=== PATIENT | female | born 1970 | race Caucasian/White ===

== ENCOUNTER → 2020-09-02 | Day surgery (SDC) | payer OTHER ==
[~2020-09-02] MED LIST: BENTYL10 MG PO; COLACE100 MG PO; FLOMAX0.4 MG PO; NORCO 5-325 TA1 EACH PO; OMEPRAZOLE 20MG20 MG PO; ONDANSETRON ODT4 MG PO; ONDANSETRON ODT4 MG SL; PROTONIX 40MG T40 MG PO; SERTRALINE HCL50 MG PO
[2020-09-02 07:56] LABS: HCG (URINE) SCREEN NEGATIVE (NEGATIVE)
[2020-09-02 08:08] LABS: HCT 44.3 % (37.0-47.0); HGB 14.8 g/dl (12.5-16.0); MCH 29.7 pg (25.0-31.0); MCHC 33.4 g/dL (32.0-36.0); MCV 88.8 fL (78.0-100.0); MPV 10.1 fL (6.0-9.5); RBC 4.99 M/uL (4.20-5.40); RDW 12.5 % (11.5-14.0); WBC 11.7 K/uL (4.0-10.5)
[2020-09-02 08:20] LABS: ALBUMIN 4.2 g/dL (3.4-5.0); BILIRUBIN - TOTAL 0.6 mg/dL (0.2-1.0); BUN/CREAT RATIO (CALC) 15.5 RATIO; CREATININE 0.71 mg/dL (0.51-0.95); GLOBULIN (CALCULATION) 4.1 g/dL; POTASSIUM 3.4 mmol/L (3.5-5.1); TOTAL PROTEIN 8.3 g/dL (6.4-8.2)
== END | disposition home or self-care (01) ==
LOC: FAS 07:23
PROVIDERS: Surgery
DX: D12.0 Benign neoplasm of cecum (principal); K29.50 Unspecified chronic gastritis without bleeding; K21.9 Gastro-esophageal reflux disease without esophagitis; G43.909 Migraine, unspecified, not intractable, without status migrainosus; F41.9 Anxiety disorder, unspecified; F32.9 Major depressive disorder, single episode, unspecified; E11.9 Type 2 diabetes mellitus without complications; F17.210 Nicotine dependence, cigarettes, uncomplicated; Z88.0 Allergy status to penicillin; Z88.5 Allergy status to narcotic agent; Z88.8 Allergy status to other drugs, medicaments and biological substances; Z79.899 Other long term (current) drug therapy
CPT/HCPCS: 36415; 80053; 84703; J2250; J2704; J7120; U0002

== ENCOUNTER 2020-11-24 13:29 | Day surgery (SDCO) | payer OTHER ==
[~2020-11-24 13:29] MED LIST changes: -BENTYL10 MG PO; -COLACE100 MG PO; -FLOMAX0.4 MG PO; -NORCO 5-325 TA1 EACH PO; -ONDANSETRON ODT4 MG SL; -PROTONIX 40MG T40 MG PO
[2020-11-24 13:57] LABS: BASOPHIL 0.5 % (0-2); EOSINOPHIL 1.2 % (0-5); HCT 44.1 % (37.0-47.0); HGB 15.1 g/dl (12.5-16.0); LYMPHOCYTE 29.3 % (15-48); MCH 29.7 pg (25.0-31.0); MCHC 34.2 g/dL (32.0-36.0); MCV 86.6 fL (78.0-100.0); MONOCYTE 7.6 % (0-12); MPV 10.1 fL (6.0-9.5); NRBC 0; PLT 246 K/uL (150-400); RBC 5.09 M/uL (4.20-5.40); RDW 12.8 % (11.5-14.0); WBC 11.1 K/uL (4.0-10.5)
[2020-11-24 14:13] LABS: BILIRUBIN - TOTAL 0.4 mg/dL (0.2-1.0); BUN/CREAT RATIO (CALC) 10.1 RATIO; CREATININE 0.69 mg/dL (0.51-0.95); GLOBULIN (CALCULATION) 3.9 g/dL; POTASSIUM 4.5 mmol/L (3.5-5.1); TOTAL PROTEIN 7.9 g/dL (6.4-8.2)
[2020-11-24 14:18] LABS: INR 1.04 (0.9-1.2); PROTHROMBIN TIME 12.9 SECONDS (11.4-13.6); PTT 28.1 SECONDS (22.2-34.7)
[2020-11-24 18:46] LABS: CORONAVIRUS 2019 SARS-COV-2 NEGATIVE (NEGATIVE); INFLUENZA A NAA NEGATIVE (NEGATIVE)
[2020-11-25 06:16] LABS: CHOLESTEROL 175 mg/dL (<200); HDL 28 mg/dL (40-60); LDL - DIRECT 138 mg/dL (<100); TRIGLYCERIDES 79 mg/dL (<150)
[2020-11-25] MEDS ORDERED: PROTONIX 40MG T40 MG PO (13:31)
[2020-11-25] MEDS ORDERED: NORCO 5-325 TA1 EACH PO (13:31)
--- NOTE | 2020-11-25 14:44 | NUR ---
PT. TO D/C HOME. NO NEEDS
[2020-11-25] MEDS ORDERED: ONDANSETRON ODT4 MG PO (15:04)
== END 2020-11-25 15:28 | disposition home or self-care (01) ==
LOC: FER 13:29 → FMS 17:33
PROVIDERS: Emergency Medicine; ADMIT Allergy & Immunology Allergy
DX: R07.89 Other chest pain (principal); G89.29 Other chronic pain; R10.13 Epigastric pain; R13.10 Dysphagia, unspecified; K76.0 Fatty (change of) liver, not elsewhere classified; R73.03 Prediabetes; F17.210 Nicotine dependence, cigarettes, uncomplicated; K21.9 Gastro-esophageal reflux disease without esophagitis; G43.409 Hemiplegic migraine, not intractable, without status migrainosus; E66.9 Obesity, unspecified; Z82.49 Family history of ischemic heart disease and other diseases of the circulatory system; Z79.899 Other long term (current) drug therapy; Z88.0 Allergy status to penicillin; Z88.5 Allergy status to narcotic agent; Z88.8 Allergy status to other drugs, medicaments and biological substances; Z20.822 Contact with and (suspected) exposure to COVID-19
CPT/HCPCS: 36415; 71045; 71250; 80053; 80061; 83036; 84484; 85025; 85379; 85610; 85730; 93005; C9113; G0378; J2405; J3010; U0002

== ENCOUNTER 2020-12-19 17:40 | Emergency (ER) | payer OTHER ==
[~2020-12-19 17:40] MED LIST changes: +NORCO 5-325 TA1 EACH PO; +PROTONIX 40MG T40 MG PO
== END 2020-12-19 19:10 | disposition left against medical advice (07) ==
LOC: FER 17:40
DX: Z53.8 Procedure and treatment not carried out for other reasons (principal)
CPT/HCPCS: 93005

== ENCOUNTER 2021-02-21 22:59 | Emergency (ER) | payer OTHER ==
[2021-02-22 01:02] LABS: BILIRUBIN NEGATIVE (NEGATIVE); BLOOD TRACE-INTACT Ery/uL (NEGATIVE); CLARITY CLEAR (CLEAR); COLOR YELLOW (YELLOW); GLUCOSE (U) NORMAL (NORMAL); LEUKOCYTES NEGATIVE Leu/uL (NEGATIVE); NITRITE NEGATIVE (NEGATIVE); PROTEIN NEGATIVE (NEGATIVE); SPECIFIC GRAVITY >=1.030 (1.001-1.030); UROBILINOGEN 0.2 mg/dL (0.2-1.0); pH 5.5 (5.0-9.0)
[2021-02-22 01:16] LABS: BACTERIA TRACE; MUCOUS TRACE
[2021-02-22 01:25] LABS: BASOPHIL 0.5 % (0-2); EOSINOPHIL 1.3 % (0-5); HCT 40.8 % (37.0-47.0); HGB 13.5 g/dl (12.5-16.0); LYMPHOCYTE 31.8 % (15-48); MCH 29.2 pg (25.0-31.0); MCHC 33.1 g/dL (32.0-36.0); MCV 88.3 fL (78.0-100.0); MPV 10.8 fL (6.0-9.5); NEUTROPHIL 56.8 % (41-80); NRBC 0; PLT 263 K/uL (150-400); RBC 4.62 M/uL (4.20-5.40); RDW 13.2 % (11.5-14.0); WBC 10.6 K/uL (4.0-10.5)
[2021-02-22 01:35] LABS: ALBUMIN 3.8 g/dL (3.4-5.0); BILIRUBIN - TOTAL 0.3 mg/dL (0.2-1.0); BUN/CREAT RATIO (CALC) 12.7 RATIO; CREATININE 0.71 mg/dL (0.51-0.95); GLOBULIN (CALCULATION) 3.8 g/dL; POTASSIUM 3.7 mmol/L (3.5-5.1); TOTAL PROTEIN 7.6 g/dL (6.4-8.2)
[2021-02-22 01:42] LABS: LACTIC ACID 1.1 mmol/L (0.4-1.9)
[2021-02-22] MEDS ORDERED: NORCO 5-325 TA1 EACH PO (05:04)
[2021-02-22] MEDS ORDERED: FLOMAX0.4 MG PO (05:04)
[2021-02-22] MEDS ORDERED: COLACE100 MG PO (05:04)
[2021-02-22] MEDS ORDERED: ONDANSETRON ODT4 MG SL (05:04)
[2021-02-22] MEDS ORDERED: BENTYL10 MG PO (05:04)
== END 2021-02-22 05:22 | disposition home or self-care (01) ==
LOC: FER 22:59
PROVIDERS: Emergency Medicine Emergency Medical Services
DX: R10.32 Left lower quadrant pain (principal); R11.0 Nausea; K56.41 Fecal impaction; K21.9 Gastro-esophageal reflux disease without esophagitis; F17.200 Nicotine dependence, unspecified, uncomplicated; Z87.442 Personal history of urinary calculi; Z90.49 Acquired absence of other specified parts of digestive tract; Z88.0 Allergy status to penicillin; Z88.5 Allergy status to narcotic agent; Z88.8 Allergy status to other drugs, medicaments and biological substances; Z79.899 Other long term (current) drug therapy
CPT/HCPCS: 36415; 80053; 81001; 83605; 83690; 84145; 85025; J1170; J1885; J2405; J7030

== ENCOUNTER → 2022-04-27 | Day surgery (SDC) | payer OTHER ==
[~2022-04-27] VITALS: Ht 162.6 cm; Wt 90.7 kg
[~2022-04-27] MED LIST changes: +ATIVAN0.5 MG PO; +BENTYL10 MG PO; +COLACE100 MG PO; +FLOMAX0.4 MG PO; +LOMAIRA8 MG PO; +ONDANSETRON ODT4 MG SL
[2022-04-27 08:08] LABS: HCG (URINE) SCREEN NEGATIVE (NEGATIVE)
[2022-04-27 08:44] LABS: HCT 43.7 % (37.0-47.0); MCH 29.7 pg (25.0-31.0); MCHC 34.3 g/dL (32.0-36.0); MCV 86.5 fL (78.0-100.0); MPV 10.4 fL (6.0-9.5); RBC 5.05 M/uL (4.20-5.40); RDW 12.5 % (11.5-14.0); WBC 9.5 K/uL (4.0-10.5)
[2022-04-27 10:19] LABS: BILIRUBIN - TOTAL 0.5 mg/dL (0.2-1.0); BUN/CREAT RATIO (CALC) 11.8 RATIO; CREATININE 0.76 mg/dL (0.51-0.95); GLOBULIN (CALCULATION) 3.3 g/dL; POTASSIUM 3.5 mmol/L (3.5-5.1); TOTAL PROTEIN 7.3 g/dL (6.4-8.2)
== END | disposition home or self-care (01) ==
LOC: FAS 08:03
PROVIDERS: Anesthesiology; Surgery
DX: K58.9 Irritable bowel syndrome, unspecified (principal); Z87.891 Personal history of nicotine dependence; Z86.010 Personal history of colon polyps; Z88.5 Allergy status to narcotic agent; Z88.0 Allergy status to penicillin; Z88.8 Allergy status to other drugs, medicaments and biological substances
CPT/HCPCS: 36415; 80053; 84703; J1610; J2250; J2704